=== PATIENT | male | born 1985 | race Caucasian/White ===

== ENCOUNTER 2021-06-20 15:45 | Emergency (ER) | payer OTHER ==
[~2021-06-20] VITALS: Ht 167.6 cm; Wt 63.5 kg
[2021-06-20] MEDS ORDERED: Crutch1 EACH MISC (17:30)
[2021-06-20] MEDS ORDERED: Norco 5-325 Ta1 EACH PO (17:30)
== END 2021-06-20 17:30 | disposition home or self-care (01) ==
LOC: ER 15:45
DX: M25.572 Pain in left ankle and joints of left foot (principal)
CPT/HCPCS: 29515; 73610; 99283-25; L1906